=== PATIENT | female | born 1980 | race Caucasian/White ===

== ENCOUNTER 2020-11-15 20:45 | Emergency (ER) | payer BC, MEDICAID | END 2020-11-15 22:47 | disposition home or self-care (01) | LOC: ER1 20:45 | DX: R50.9 Fever, unspecified (principal); F17.210 Nicotine dependence, cigarettes, uncomplicated; Z20.822 Contact with and (suspected) exposure to COVID-19 | CPT/HCPCS: 71045; 99283; U0003 ==